=== PATIENT | female | born 1975 | race African-American/Black ===

== ENCOUNTER 2019-06-21 15:52 | Emergency (ER) | payer SELFPAY ==
[~2019-06-21] VITALS: Ht 162.6 cm; Wt 69.4 kg
[2019-06-21] MEDS ORDERED: KETOROLAC 15 MG/ML VIAL. IV ONE (17:00)
[2019-06-21] MEDS ORDERED: ONDANSETRON PF 4 MG/2 ML VIAL. IV ONE (17:00)
[2019-06-21] MEDS ORDERED: FAMOTIDINE 20 MG/2 ML VIAL IVP ONE (17:00)
[2019-06-21] MEDS ORDERED: IV NORMAL SALINE 1,000ML 1,000 ML IV ONE (17:00)
[2019-06-21 17:26] LABS: BASO % 0 % (0-3); EOS % 0 % (0-3); HEMATOCRIT 40.1 % (36.0-47.0); HEMOGLOBIN 13.1 g/dL (12.0-15.5); LYMPH # 0.5 x10^3/uL (1.0-4.8); LYMPH % 4 % (24-48); MEAN CORPUSCULAR HEMOGLOBIN 31 pg (25-35); MEAN CORPUSCULAR HGB CONC 33 g/dL (31-37); MEAN CORPUSCULAR VOLUME 95 fL (79-100); MONO # 0.7 x10^3/uL (0.0-1.1); MONO % 6 % (0-9); NEUT % 90 % (31-73); PLATELET COUNT 142 x10^3/uL (140-400); RED BLOOD COUNT 4.24 x10^6/uL (3.50-5.40); RED CELL DISTRIBUTION WIDTH 14.1 % (11.5-14.5); WHITE BLOOD COUNT 12.3 x10^3/uL (4.0-11.0)
[2019-06-21 17:44] LABS: ALBUMIN 3.7 g/dL (3.4-5.0); ALBUMIN/GLOBULIN RATIO 1.1 (1.0-1.7); CALCIUM 9.3 mg/dL (8.5-10.1); CREATININE 0.7 mg/dL (0.6-1.0); GFR 110.5; MAGNESIUM 1.9 mg/dL (1.8-2.4); POTASSIUM 3.7 mmol/L (3.5-5.1); TOTAL BILIRUBIN 0.4 mg/dL (0.2-1.0); TOTAL PROTEIN 7.1 g/dL (6.4-8.2)
[2019-06-21 17:49] LABS: BILIRUBIN,URINE NEG (NEG); CLARITY,URINE CLOUDY; COLOR,URINE AMBER; GLUCOSE,URINE NEG (NEG)
[2019-06-21 17:50] LABS: BACTERIA,URINE FEW /HPF (0-FEW); NITRITE,URINE NEG (NEG); SQUAMOUS EPITHELIAL CELL,UR OCC /LPF; UROBILINOGEN,URINE 0.2 mg/dL (0.2 mg/dL); WBC,URINE OCC /HPF (0-4)
--- NOTE | 2019-06-21 17:51 | RAD ---
Exam: CT abdomen and pelvis without contrast INDICATION: Left flank pain TECHNIQUE: Sequential axial images through the abdomen and pelvis obtained without IV contrast. Sagittal and coronal reformatted images were reconstructed from the axial data and reviewed. Comparisons: None FINDINGS: Heart size is normal. No pericardial effusion. Patient has lung bases are clear. No pleural effusion. Evaluation of solid organs is limited secondary to noncontrast technique. 2.0 cm hypoattenuating cystic structure at the right hepatic lobe adjacent to the falciform ligament incompletely characterized on noncontrast exam. Liver overall demonstrates diffuse hypoattenuation. Spleen, pancreas, gallbladder and adrenals are unremarkable. No perinephric inflammation or hydronephrosis. No renal or ureteral calculi are identified. Bladder is decompressed not well evaluated. Uterus is not enlarged. Tampon is noted within the vagina. Inflammatory changes are seen surrounding the distal descending colon with the diverticula in the area. The remainder of the large and small bowel are unremarkable. No obstruction. No free intra-abdominal air or fluid. Appendix is normal. Abdominal aorta has normal course and caliber. No enlarged abdominal lymph nodes are identified. Sclerotic appearance of the right iliac bone adjacent to the sacroiliac joint. And to lesser extent on the left. No suspicious osseous lesions or acute fractures. IMPRESSION: 1. Diverticulitis at the inferior descending colon. No evidence for perforation or abscess. 2. 2.0 cm hypoattenuating cystic structure at the right hepatic lobe anteriorly adjacent to the falciform ligament. This likely represents a simple cysts however can be better characterized with nonemergent ultrasound 3. Hepatic steatosis Exposure: One or more of the following in the visualized dose reduction techniques were utilized for this examination: 1. Automated exposure control 2. Adjustment of the MA and/or KV according to patient size 3. Use of iterative of reconstructive technique Electronically signed by: Gilda Silva MD (06/21/2019 5:48 PM) [facility]
[2019-06-21] MEDS ORDERED: TRAM50TA PO (18:04)
[2019-06-21] MEDS ORDERED: CIPR500T94 PO (18:04)
[2019-06-21] MEDS ORDERED: METR500T PO (18:04)
[2019-06-21] MEDS ORDERED: ONDA4TAB12 PO (18:04)
[2019-06-21] MEDS ORDERED: metroNIDAZOLE 500 MG TABLET ONE (18:05)
[2019-06-21] MEDS ORDERED: CIPROFLOXACIN HCL 500 MG TABLET ONE (18:05)
--- NOTE | 2019-06-21 18:05 | PHYS DOC ---
Past History Past Medical History: Bronchitis, Other (JANNIE DALEY DO) Past Surgical History: Other (JANNIE DALEY DO) Alcohol Use: Occasionally Drug Use: None (JANNIE DALEY DO) Adult General Chief Complaint Chief Complaint: GI PROBLEM HPI HPI Patient is a [age] year old [sex] who presents with [] (JANNIE DALEY DO) Review of Systems Review of Systems Constitutional: Denies fever or chills Eyes: Denies redness or eye pain HENT: Denies nasal congestion or sore throat Respiratory: Denies cough or shortness of breath Cardiovascular: Denies chest pain or palpitations GI: Reports abdominal pain and nausea; Denies vomiting : Denies dysuria or hematuria Musculoskeletal: Denies back pain or joint pain, reports flank pain Integument: Denies rash or skin lesions Neurologic: Denies headache, focal weakness or sensory changes Complete systems were reviewed and found to be within normal limits, except as documented in this note. (JANNIE DALEY DO) Current Medications Current Medications Current Medications Medications (Trade) Dose Ordered Sig/[place] Start Time Stop Time Status Last Admin Dose Admin Ciprofloxacin (Cipro) 500 mg 1X ONCE 06/21/19 18:00 06/21/19 18:01 UNV Famotidine (Pepcid Vial) 20 mg 1X ONCE 06/21/19 17:00 06/21/19 17:01 DC 06/21/19 17:23 20 MG Ketorolac Tromethamine (Toradol 15mg Vial) 15 mg 1X ONCE 06/21/19 17:00 06/21/19 17:01 DC 06/21/19 17:25 15 MG Metronidazole (Flagyl) 500 mg 1X ONCE 06/21/19 18:00 06/21/19 18:01 UNV Ondansetron HCl (Zofran) 4 mg 1X ONCE 06/21/19 17:00 06/21/19 17:01 DC 06/21/19 17:24 4 MG Sodium Chloride 1,000 ml @ 1,000 mls/hr 1X ONCE 06/21/19 17:00 06/21/19 17:59 DC 06/21/19 17:24 1,000 MLS/HR (JANNIE DALEY DO) Allergies Allergies Allergies Coded Allergies Type Severity Reaction Last Updated Verified Amoxicillin Allergy Mild 08/14/14 No vancomycin Allergy Unknown 08/14/14 No (JANNIE DALEY DO) Physical Exam Physical Exam Constitutional: Well developed, well nourished, no acute distress, non-toxic appearance HENT: Normocephalic, atraumatic, oropharynx moist Eyes: Conjunctiva normal, no discharge Neck: Normal range of motion, no tenderness, supple Cardiovascular: Heart rate normal, regular rhythm Lungs & Thorax: Bilateral breath sounds clear to auscultation, no wheezing Abdomen: Soft, LUQ/LLQ pain on palpation Skin: Warm, dry, no erythema, no rash Back: No tenderness, left CVA tenderness Extremities: No tenderness, ROM intact, no edema Neurologic: Alert and oriented X 3, no focal deficits noted Psychologic: Affect normal, judgement normal, mood normal (DALEYJANNIE Ben BRUNSON) Current Patient Data Vital Signs Vital Signs Date Time Temp Pulse Resp B/P (MAP) Pulse Ox O2 Delivery O2 Flow Rate FiO2 06/21/19 16:04 99.7 111 20 100 Room Air Lab Results Laboratory Tests Test 06/21/19 17:05 White Blood Count 12.3 x10^3/uL (4.0-11.0) H Red Blood Count 4.24 x10^6/uL (3.50-5.40) Hemoglobin 13.1 g/dL (12.0-15.5) Hematocrit 40.1 % (36.0-47.0) Mean Corpuscular Volume 95 fL (79-100) Mean Corpuscular Hemoglobin 31 pg (25-35) Mean Corpuscular Hemoglobin Concent 33 g/dL (31-37) Red Cell Distribution Width 14.1 % (11.5-14.5) Platelet Count 142 x10^3/uL (140-400) Neutrophils (%) (Auto) 90 % (31-73) H Lymphocytes (%) (Auto) 4 % (24-48) L Monocytes (%) (Auto) 6 % (0-9) Eosinophils (%) (Auto) 0 % (0-3) Basophils (%) (Auto) 0 % (0-3) Neutrophils # (Auto) 11.0 x10^3uL (1.8-7.7) H Lymphocytes # (Auto) 0.5 x10^3/uL (1.0-4.8) L Monocytes # (Auto) 0.7 x10^3/uL (0.0-1.1) Eosinophils # (Auto) 0.0 x10^3/uL (0.0-0.7) Basophils # (Auto) 0.0 x10^3/uL (0.0-0.2) Urine Collection Type Unknown Urine Color Neli Urine Clarity Cloudy Urine pH 6.0 Urine Specific [place] 1.025 Urine Protein 30 mg/dl (NEG-TRACE) Urine Glucose (UA) Neg mg/dL (NEG) Urine Ketones (Stick) Neg mg/dL (NEG) Urine Blood Small (NEG) Urine Nitrite Neg (NEG) Urine Bilirubin Neg (NEG) Urine Urobilinogen Dipstick 0.2 mg/dL (0.2 mg/dL) Urine Leukocyte Esterase Neg (NEG) Urine RBC 1-2 /HPF (0-2) Urine WBC Occ /HPF (0-4) Urine Squamous Epithelial Cells Occ /LPF Urine Bacteria Few /HPF (0-FEW) Urine Mucus Mod /LPF Sodium Level 140 mmol/L (136-145) Potassium Level 3.7 mmol/L (3.5-5.1) Chloride Level 104 mmol/L (98-107) Carbon Dioxide Level 25 mmol/L (21-32) Anion Gap 11 (6-14) Blood Urea Nitrogen 13 mg/dL (7-20) Creatinine 0.7 mg/dL (0.6-1.0) Estimated GFR (Cockcroft-Gault) 110.5 BUN/Creatinine Ratio 19 (6-20) Glucose Level 118 mg/dL (70-99) H Calcium Level 9.3 mg/dL (8.5-10.1) Magnesium Level 1.9 mg/dL (1.8-2.4) Total Bilirubin 0.4 mg/dL (0.2-1.0) Aspartate Amino Transferase (AST) 25 U/L (15-37) Alanine Aminotransferase (ALT) 39 U/L (14-59) Alkaline Phosphatase 77 U/L (46-116) Total Protein 7.1 g/dL (6.4-8.2) Albumin 3.7 g/dL (3.4-5.0) Albumin/Globulin Ratio 1.1 (1.0-1.7) Lipase 72 U/L (73-393) L (JANNIE DALEY DO) EKG EKG [] (JANNIE DALEY DO) Radiology/Procedures Radiology/Procedures [] (JANNIE DALEY DO) Course & Med Decision Making Course & Med Decision Making Pertinent Labs and Imaging studies reviewed. (See chart for details) Patient stable for discharge with outpatient follow-up with PCP/GI. GI referral provided. Discussed findings and plan with patient and family, who acknowledge understanding and agreement. (JANNIE DALEY DO) Dragon Disclaimer Dragon Disclaimer This electronic medical record was generated, in whole or in part, using a voice recognition dictation system. (JANNIE DALEY DO) Departure Departure: Impression: Primary Impression: Diverticulitis Disposition: HOME, SELF-CARE Condition: STABLE Referrals: RADHA PERALES MD (PCP) DALLAS CARR MD Patient Instructions: Diverticulitis, [id number] Scripts Metronidazole (FLAGYL) 500 Mg Tablet 1 TAB PO TID for Diverticulitis, #21 TAB Prov: JANNIE DALEY DO 06/21/19 Ciprofloxacin Hcl (CIPRO) 500 Mg Tablet 1 TAB PO BID for Diverticulitis, #14 TAB Prov: JANNIE DALEY DO 06/21/19 Tramadol Hcl (TRAMADOL HCL) 50 Mg Tablet 50 MG PO PRN Q6HRS PRN for PAIN, #14 TAB Prov: JANNIE DALEY DO 06/21/19 Ondansetron (ONDANSETRON ODT) 4 Mg Tab.rapdis 1 TAB PO PRN Q6-8HRS PRN for NAUSEA, #16 TAB Prov: JANNIE DALEY DO 06/21/19 JANNIE DALEY DO Jun 21, 2019 18:05 FRANKLIN LOPEZ MD Jun 21, 2019 23:38
[2019-06-21] MEDS ORDERED: metroNIDAZOLE 500 MG TABLET PO ONE (18:15)
[2019-06-21] MEDS ORDERED: CIPROFLOXACIN HCL 500 MG TABLET PO ONE (18:15)
[2019-06-21 18:50] VITALS: BP 128/78
== END 2019-06-21 18:52 | disposition home or self-care (01) ==
LOC: ER 15:52
DX: K57.32 Diverticulitis of large intestine without perforation or abscess without bleeding (principal); Z88.1 Allergy status to other antibiotic agents
CPT/HCPCS: 36415; 74176; 80053; 81001; 83690; 83735; 85025; 96374; 96375; 99285; J1885; J2405; J3490; J7030

== ENCOUNTER 2021-04-16 16:12 | Emergency (ER) | payer OTHER ==
[~2021-04-16] VITALS: Ht 162.6 cm; Wt 68.5 kg
[~2021-04-16 16:12] MED LIST: CIPR500T94 PO; METR500T PO; ONDA4TAB12 PO; TRAM50TA PO
[2021-04-16 17:26] LABS: BASO % 1 % (0-3); EOS # 0.2 x10^3/uL (0.0-0.7); EOS % 3 % (0-3); HEMATOCRIT 37.4 % (36.0-47.0); HEMOGLOBIN 12.2 g/dL (12.0-15.5); LYMPH # 1.2 x10^3/uL (1.0-4.8); LYMPH % 17 % (24-48); MEAN CORPUSCULAR HEMOGLOBIN 30 pg (25-35); MEAN CORPUSCULAR HGB CONC 33 g/dL (31-37); MEAN CORPUSCULAR VOLUME 93 fL (79-100); MONO # 0.7 x10^3/uL (0.0-1.1); MONO % 10 % (0-9); NEUT # 5.1 x10^3uL (1.8-7.7); NEUT % 70 % (31-73); PLATELET COUNT 161 x10^3/uL (140-400); RED BLOOD COUNT 4.04 x10^6/uL (3.50-5.40); RED CELL DISTRIBUTION WIDTH 14.9 % (11.5-14.5); WHITE BLOOD COUNT 7.2 x10^3/uL (4.0-11.0)
[2021-04-16] MEDS ORDERED: CEPH500T PO (17:43)
--- NOTE | 2021-04-16 17:45 | PHYS DOC ---
Past History Past Medical History: Anxiety (JAIME ANN APRN) Past Surgical History: Other Additional Past Surgical Histo: finger amputation, lung bx (JAIME ANN APRN) Smoking: Cigarettes Alcohol Use: Occasionally Drug Use: None (JAIME ANN APRN) General Adult EDM: Chief Complaint: SKIN RASH/ABSCESS HPI: HPI: Patient is a 45-year-old female who presents with right leg swelling and redness. States that she was bit by some type of insect, but the swelling and warmth to the area had gotten worse. Patient denies that she has been running a fever. Denies nausea/vomiting/diarrhea. Patient has history of anxiety. (JAIME ANN APRN) Review of Systems: Review of Systems: Constitutional: Denies fever or chills Eyes: Denies change in visual acuity HENT: Denies nasal congestion or sore throat Respiratory: Denies cough or shortness of breath Cardiovascular: Denies chest pain or edema GI: Denies abdominal pain, nausea, vomiting, bloody stools or diarrhea : Denies dysuria Musculoskeletal: Denies back pain or joint pain Integument: Reports red, swollen, warm upper right thigh Neurologic: Denies headache, focal weakness or sensory changes Endocrine: Denies polyuria or polydipsia Lymphatic: Denies swollen glands Psychiatric: Denies depression or anxiety (JAIME ANN APRN) Allergies: Allergies: Allergies Coded Allergies Type Severity Reaction Last Updated Verified amoxicillin Allergy Mild 08/14/14 No sulfamethoxazole Allergy Mild hives 04/16/21 Yes trimethoprim Allergy Mild hives 04/16/21 Yes vancomycin Allergy Unknown 08/14/14 No (JAIME ANN APRN) Physical Exam: PE: Constitutional: Well developed, well nourished, no acute distress, non-toxic appearance. [] HENT: Normocephalic, atraumatic, bilateral external ears normal, oropharynx moist, no oral exudates, nose normal. [] Eyes: PERRLA, EOMI, conjunctiva normal, no discharge. [] Neck: Normal range of motion, no tenderness, supple, no stridor. [] Cardiovascular:Heart rate regular rhythm, no murmur [] Lungs & Thorax: Bilateral breath sounds clear to auscultation [] Abdomen: Bowel sounds normal, soft, no tenderness, no masses, no pulsatile masses. [] Skin: Warm, dry, no erythema, no rash. [] Back: No tenderness, no CVA tenderness. [] Extremities: Right upper thigh tenderness, swelling, warmth, redness] Neurologic: Alert and oriented X 3, normal motor function, normal sensory function, no focal deficits noted. [] Psychologic: Affect normal, judgement normal, mood normal. [] (JAIME ANN APRN) Current Patient Data: Labs: Laboratory Tests Test 04/16/21 16:55 White Blood Count 7.2 x10^3/uL (4.0-11.0) Red Blood Count 4.04 x10^6/uL (3.50-5.40) Hemoglobin 12.2 g/dL (12.0-15.5) Hematocrit 37.4 % (36.0-47.0) Mean Corpuscular Volume 93 fL (79-100) Mean Corpuscular Hemoglobin 30 pg (25-35) Mean Corpuscular Hemoglobin Concent 33 g/dL (31-37) Red Cell Distribution Width 14.9 % (11.5-14.5) H Platelet Count 161 x10^3/uL (140-400) Neutrophils (%) (Auto) 70 % (31-73) Lymphocytes (%) (Auto) 17 % (24-48) L Monocytes (%) (Auto) 10 % (0-9) H Eosinophils (%) (Auto) 3 % (0-3) Basophils (%) (Auto) 1 % (0-3) Neutrophils # (Auto) 5.1 x10^3uL (1.8-7.7) Lymphocytes # (Auto) 1.2 x10^3/uL (1.0-4.8) Monocytes # (Auto) 0.7 x10^3/uL (0.0-1.1) Eosinophils # (Auto) 0.2 x10^3/uL (0.0-0.7) Basophils # (Auto) 0.0 x10^3/uL (0.0-0.2) Vital Signs: Vital Signs Date Time Temp Pulse Resp B/P (MAP) Pulse Ox O2 Delivery O2 Flow Rate FiO2 04/16/21 16:27 98.4 111 18 133/83 (100) 99 Room Air (AJIME ANN APRN) EKG: EKG: [] (JAIME ANN APRN) Radiology/Procedures: Radiology/Procedures: [] (JAIME ANN APRN) Heart Score: C/O Chest Pain: No Risk Factors: Risk Factors: DM, Current or recent (<one month) smoker, HTN, HLP, family history of CAD, obesity. Risk Scores: Score 0 - 3: 2.5% MACE over next 6 weeks - Discharge Home Score 4 - 6: 20.3% MACE over next 6 weeks - Admit for Clinical Observation Score 7 - 10: 72.7% MACE over next 6 weeks - Early Invasive Strategies (JAIME ANN APRN) Course & Med Decision Making: Course & Med Decision Making Pertinent Labs and Imaging studies reviewed. (See chart for details) [] 45-year-old female presents with right leg swelling, warmth, redness from insect bite. Patient is afebrile. Patient was tachycardic, 113. CBC ordered to rule out infection. WBC 7.2. Patient's heart rate is 92 upon discharge. Patient sent home with Keflex to treat infection. To follow-up with PCP if she has further concerns. Patient is appreciative and okay with discharge plan (JAIME ANN APRN) Course & Med Decision Making The patient's physical exam was scanned is not completely accurate in the note. More accurate details of the skin physical exam are found in the medical decision making section. (KATH HOU DO) Dragon Disclaimer: Dragon Disclaimer: This electronic medical record was generated, in whole or in part, using a voice recognition dictation system. (JAIME ANN APRN) Attending Co-Sign The patient was seen and interviewed as well as examined at the bedside. The chart was reviewed. The case was discussed. Agree with the plan of care. (KATH HOU DO) Departure Departure: Impression: Primary Impression: Cellulitis and abscess of right leg Disposition: HOME / SELF CARE / HOMELESS Condition: STABLE Referrals: PCP,NO (PCP) Patient Instructions: Cellulitis Additional Instructions: You are seen in the emergency room for swelling to your right upper thigh from what appears to be an insect bite. I am sending you home with a prescription for an antibiotic to help treat infection. Please return to the emergency room with worsening symptoms or concerns. EMERGENCY DEPARTMENT GENERAL DISCHARGE INSTRUCTIONS Thank you for coming to [facility] (ED) today and trusting us with you care. We trust that you had a positivie experience in our Emergency Department. If you wish to speak to the department management, you may call the director at [phone]. YOUR FOLLOW UP INSTRUCTIONS ARE FOLLOWS: 1. Do you have a private Doctor? If you do not have a private doctor, please ask for a resource list of physicians or clinics that may be able to assist you with follow up care. 2. The Emergency Physician has interpreted your x-rays. The X-Ray specialist will also review them. If there is a change in the findings, you will be notified in 48 hours when at all possible. 3. A lab test or culture has been done, your results will be reviewed and you will be notified if you need a change in treatment. ADDITIONAL INSTRUCTIONS AND INFORMATION: 1. Your care today has been supervised by a physician who is specially trained in emergency care. Many problems require more than one evaluation for a complete diagnosis and treatment. We recommend that you schedule your follow up appointment as recommended to ensure complete treatment of you illness or injury. If you are unable to obtain follow up care and continue to have a problem, or if your condition worsens, we recommend that you return to the ED. 2. We are not able to safely determine your condition over the phone nor are we able to give sound medical advice over the phone. For these safety reasons, if you call for medical advice we will ask you to come to the ED for further evaluation. 3. If you have any questions regarding these discharge instructions please call the ED at [phone]. SAFETY INFORMATION: In the interest of safety, wellness, and injury prevention; we encourage you to wear your sealbelt, if you smoke; quite smoking, and we encourage family to use a protective helmet for bicycling and other sporting events that present an increased risk for head injury. IF YOUR SYMPTOMS WORSEN OR NEW SYMPTOMS DEVELOP, OR YOU HAVE CONCERNS ABOUT YOUR CONDITION; OR IF YOUR CONDITION WORSENS WHILE YOU ARE WAITING FOR YOUR FOLLOW UP APPOINTMENT; EITHER CONTACT YOUR PRIMARY CARE DOCTOR, THE PHYSICIAN WHOSE NAME AND NUMBER YOU WERE GIVEN, OR RETURN TO THE ED IMMEDIATELY. Scripts Cephalexin (CEPHALEXIN) 500 Mg Tablet 1 TAB PO QID for cellulitis for 5 Days, #20 TAB Prov: JAIME ANN [employer] 04/16/21 JAIME ANN APRN April 16, 2021 17:45 KATH HOU DO April 17, 2021 06:27
[2021-04-16 17:47] VITALS: BP 125/76
== END 2021-04-16 17:50 | disposition home or self-care (01) ==
LOC: ER 16:12
DX: L03.115 Cellulitis of right lower limb (principal); F17.210 Nicotine dependence, cigarettes, uncomplicated; Z88.1 Allergy status to other antibiotic agents; Z88.2 Allergy status to sulfonamides; Z88.6 Allergy status to analgesic agent
CPT/HCPCS: 36415; 85025; 99283-25